=== PATIENT | male | born 1980 | race Caucasian/White ===

== ENCOUNTER 2022-03-30 08:52 | Outpatient (CLI) | payer OTHER, SELFPAY ==
[2022-03-30 14:30] LABS: Albumin* 4.6 g/dL (3.3-5.0); Chloride* 103 mmol/L (96-114); Sodium* 141 mmol/L (135-149)
[2022-03-30 14:31] LABS: Potassium* 4.5 mmol/L (3.6-5.1)
[2022-03-30 14:33] LABS: Alanine Aminotransferase* 33 U/L (4-50); Alkaline Phosphatase* 55 U/L (40-150); Aspartate Amino Transferase* 34 U/L (12-35); Blood Urea Nitrogen* 23 mg/dL (5-24); Carbon Dioxide* 28 mmol/L (20-32); Creatinine* 1.2 mg/dL (0.5-1.5); Estimated Glomerular Filt Rate 78 ml/min; Glucose* 86 mg/dL (60-115)
[2022-03-30 14:34] LABS: Calcium* 9.7 mg/dL (8.4-10.6)
== END 2022-03-30 08:53 | disposition home or self-care (01) ==
PROVIDERS: PCP Family Medicine; Visit Provider Family Medicine
DX: Z00.00 Encounter for general adult medical examination without abnormal findings (principal); Z13.6 Encounter for screening for cardiovascular disorders; Z13.9 Encounter for screening, unspecified
CPT/HCPCS: 80048; 80076

== ENCOUNTER 2023-08-31 09:46 | Outpatient (CLI) | payer OTHER, SELFPAY | END 2023-08-31 09:47 | disposition home or self-care (01) | LOC: LKVREF 09:48 | PROVIDERS: PCP Family Medicine; Visit Provider Family Medicine | DX: R74.8 Abnormal levels of other serum enzymes (principal); Z13.228 Encounter for screening for other metabolic disorders | CPT/HCPCS: 80048; 80061 ==

== ENCOUNTER 2025-01-22 08:13 | Outpatient (CLI) | payer OTHER, SELFPAY | END 2025-01-22 08:14 | disposition home or self-care (01) | LOC: NFLDREF 01-23 08:10 | PROVIDERS: PCP Family Medicine; Referring Provider Family Medicine; Visit Provider Family Medicine | DX: Z13.1 Encounter for screening for diabetes mellitus (principal); Z13.6 Encounter for screening for cardiovascular disorders | CPT/HCPCS: 80053; 80061 ==

== ENCOUNTER 2025-02-01 13:55 | Outpatient (CLI) | payer OTHER, SELFPAY ==
--- NOTE | 2025-02-01 14:00 | CRLHL7_ITS ---
For Patients: As a result of the Century Cures Act, medical imaging exams and procedure reports are released immediately into your electronic medical record. You may view this report before your referring provider. If you have questions, please contact your health care provider. INDICATION: Asymmetry and firmness of the left testicle. COMPARISON: none TECHNIQUE: Arrieta scale imaging was performed of the scrotum. In addition color Doppler and spectral Doppler analysis was performed of the testes. FINDINGS: There is a circumscribed hypoechoic mass within the medial left testicle which measures 2.7 x 2.0 x 1.8 cm. Somewhat lobular contour noted. In addition, there is a complex solid and cystic mass within the lateral left testicle which measures 1.4 x 1.3 x 1.2 cm. Right testicle is normal. The right testis measures 4.6 x 2.3 x 3.1 cm in size and the left testis measures 4.2 x 2.3 x 3.3 cm. The epididymis appears normal bilaterally. There is no evidence of a hydrocele or varicocele. IMPRESSION: There are 2 suspicious left intratesticular masses measuring 2.7 cm and 1.4 cm. Urology referral recommended. Dictated by Joseph Soto MD @ 02/02/2025 7:06:31 AM (Electronically Signed)
== END 2025-02-01 13:56 | disposition home or self-care (01) ==
LOC: US 13:56
PROVIDERS: PCP Family Medicine; Visit Provider Family Medicine
DX: N50.89 Other specified disorders of the male genital organs (principal)
CPT/HCPCS: 76870; 93976